=== PATIENT | male | born 1980 | race Caucasian/White ===

== ENCOUNTER 2021-02-01 08:34 | Emergency (ER) | payer SELFPAY ==
[~2021-02-01] VITALS: Ht 175.3 cm; Wt 82.0 kg
[2021-02-01 08:38] VITALS: BP 106/75
[2021-02-01] MEDS ORDERED: ACETAMINOPHEN 325 MG TABLET PO ONE (09:30)
[2021-02-01] MEDS ORDERED: ACETAMINOPHEN 325 MG TABLET ONE (09:43)
--- NOTE | 2021-02-01 09:44 | NUR ---
First interaction with pt: This RN unable to indroduce self as pt immediately stated "I'm in a lot of pain. My father used to pay for me for a place to stay, now the cold is doing this to my hands." Pt has 2mm laceration, non bleeding, no signs of infection. Pt states "I need mental health resources, not that I need metal help." Pt to be given resources at d/c.
== END 2021-02-01 10:03 | disposition home or self-care (01) ==
LOC: ED 09:04
DX: S60.511A Abrasion of right hand, initial encounter (principal); S60.512A Abrasion of left hand, initial encounter; S60.411A Abrasion of left index finger, initial encounter; F29 Unspecified psychosis not due to a substance or known physiological condition; X58.XXXA Exposure to other specified factors, initial encounter; Y93.89 Activity, other specified; Y92.89 Other specified places as the place of occurrence of the external cause; Y99.8 Other external cause status
CPT/HCPCS: 99282

== ENCOUNTER 2021-02-02 02:35 | Emergency (ER) | payer SELFPAY ==
[~2021-02-02] VITALS: Ht 175.3 cm; Wt 75.0 kg
[2021-02-02] MEDS ORDERED: ZIPRASIDONE 20 MG INJ IM ONE ×2 (03:00→03:10)
--- NOTE | 2021-02-02 03:40 | NUR ---
patient ambulated into ER [facility]. brought to room ER-04 as patient was having rambling illogical speech, logical at times, and accusing staff of things. patient also having paranoid thoughts as this was presumed by patient's statements "stop, youre trying to put a microchip in my hand" and "you just want to steal everything i have so i have to wear your clothes, but im not you. you live here". patient is oriented to himself and time and does state he is in [place], [place] but cannot tell me the place he is in or why he is here. patient denies drug use. denies etoh use. Dr. Waller to see patient and deemed patient to be unsafe to himself and to the community and patient is being placed on legal hold until further assessment. Yash ordered as patient is not able to comply with requests to care for patient. 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 patient's statements not congruent with one another. Security called to move patient to room 01 to make a safety room. patient does not seem to have good logical thoughts at this time. patient does not show good judgment. security with patient requesting he change into gown and place all his belongings into bag. patient refused to do so. security able to encourage patient to follow this request. he refused to give up his phone and coffee he was holding. patient accusing security of trying to put a chip in his hand. he is not cooperative with care and currently needing medication to help his psychosis. leather restraints placed by security. patient continues to ramble throughout this process. patient refuses to allow me to place vs monitoring equipment "why do you like touching me. where can i find a so i can someone? 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 restraints loosened for appropriate application of restraints. i am able to fit 2 fingers under each restraint career services representative. patient will not allow me to place o2 probe stating "no it hurts my finger" as i had not placed it on patient's skin yet. belongings placed in labeled bag in locked secured cabinet in ER. patient repeats statement "take this off me. i wouldnt do this to you. im going to bring you to court". RN reassured patient of reasoning for restraints at this time. will reassess Q15 minutes to remove restraints. safety maintained. frequent RN monitoring of patient.
[2021-02-02 03:52] LABS: BASOPHILS % (AUTO) 0 % (0-1); EOSINOPHILS % (AUTO) 1 % (1-7); LYMPHOCYTES % (AUTO) 22 % (22-44); MEAN CORPUSCULAR HEMOGLOBIN 33.5 pg (27.5-34.5); MEAN CORPUSCULAR HGB CONC 35.1 g/dL (33.2-36.2); MEAN PLATELET VOLUME 7.3 fL (7.4-10.4); MONOCYTES % (AUTO) 13 % (2-9); NEUTROPHILS % (AUTO) 64 % (42-75); PLATELET COUNT 287 x10^3/uL (130-400); RED BLOOD COUNT 4.26 x10^6/uL (4.38-5.82); RED CELL DISTRIBUTION WIDTH 12.9 % (9.4-14.8)
[2021-02-02 03:53] LABS: ALANINE AMINOTRANSFERASE 176 U/L (12-78); ALBUMIN 4.2 g/dL (3.4-5.0); ANION GAP 9 mmol/L (5-15); CHLORIDE 103 mmol/L (98-107); CREATININE 0.99 mg/dL (0.7-1.3)
[2021-02-02 03:54] LABS: MD NO
[2021-02-02 03:55] LABS: ALKALINE PHOSPHATASE 80 U/L (45-117); BILIRUBIN,TOTAL 0.8 mg/dL (0.2-1.0); TOTAL PROTEIN 7.3 g/dL (6.4-8.2)
--- NOTE | 2021-02-02 04:08 | NUR ---
VITO and GIFTY contreras restraints removed by security with RN's request. will continue to monitor. safety maintained.
--- NOTE | 2021-02-02 04:30 | NUR ---
remaining restraints removed. patient still becomes agitated with staff interaction but agrees to keep vital monitoring equipment in place. safety maintained. will continue to monitor
--- NOTE | 2021-02-02 04:32 | NUR ---
paient ambulated to bathroom with steady gait but slightly staggering at times. patient refused to use urinal in bed or/and in room.
--- NOTE | 2021-02-02 04:59 | NUR ---
patient resting in bed. call cristobal in reach. safety maintained.side rails up for safety.
[2021-02-02 05:14] LABS: AMPHETAMINE SCREEN, URINE Positive (Negative); BARBITURATE SCREEN, URINE Negative (Negative); BENZODIAZEPINE SCREEN, URINE Negative (Negative); CANNABINOID SCREEN, URINE Negative (Negative); COCAINE SCREEN, URINE Negative (Negative); METHADONE SCREEN, URINE Negative (Negative); OPIATE SCREEN, URINE Negative (Negative)
--- NOTE | 2021-02-02 05:30 | NUR ---
report given to Vidal MEDINA
--- NOTE | 2021-02-02 06:08 | NUR ---
Patient with self pay insurance so packet faxed to [facility] and conformation received.
--- NOTE | 2021-02-02 07:27 | NUR ---
Report from night RN, this RN assumed full care at 0700. Pt sleeping in [facility], in view of sitter. Breakfast tray ordered. Awaiting psych eval.
[2021-02-02] MEDS ORDERED: ZIPRASIDONE 20MG CAPSULE ONE (10:50)
[2021-02-02 11:30] VITALS: BP 116/66
[2021-02-02] MEDS ORDERED: ZIPRASIDONE 40MG CAPSULE PO SCH (11:30)
== END 2021-02-02 11:33 | disposition home or self-care (01) ==
LOC: ED 02:56
DX: F20.0 Paranoid schizophrenia (principal); R94.5 Abnormal results of liver function studies
CPT/HCPCS: 36415; 80053; 80299; 80307; 80320; 80329; 85025; 96372; 99285; J3486; G0480